=== PATIENT | male | born 1975 | race Caucasian/White ===

== ENCOUNTER 2020-07-15 06:42 | Emergency (ER) | payer BC ==
[~2020-07-15] VITALS: Ht 177.8 cm; Wt 108.9 kg
--- NOTE | 2020-07-15 06:50 | NUR ---
BIBS FOR C/O MID STERNAL CP . NON RADIATING FOR "A LONG TIME". PT DENIED SOB, N/V, H/A OR ANY OTHER SYMPTOMS. PT AMBULATORY TO BED 9, WAS PLACED ON A ALARM INSTALLATION TECHNICIAN. WILL CONT TO MONITOR ,AND F/U W/ MD'S ORDERS.
--- NOTE | 2020-07-15 07:02 | NUR ---
EMT AT BED SIDE FOR EKG
--- NOTE | 2020-07-15 07:05 | NUR ---
X GENIA T BED SIDE
[2020-07-15] MEDS ORDERED: LORAZEPAM 1 MG TABLET PO ONE (07:30)
[2020-07-15] MEDS ORDERED: LORAZEPAM 1 MG TABLET ONE (07:53)
[2020-07-15 08:13] LABS: BASOPHILS % (AUTO) 0.9 % (0.0-2.0); EOSINOPHILS % (AUTO) 0.5 % (0.0-6.0); HEMATOCRIT 48 % (39-51); LYMPHOCYTES # (AUTO) 1.1 /CMM (0.8-4.8); LYMPHOCYTES % (AUTO) 20.7 % (20.0-44.0); MEAN CORPUSCULAR HGB CONC 33 g/dl (31.0-36.0); MEAN CORPUSCULAR VOLUME 85 fL (80-96); MONOCYTES # (AUTO) 0.5 /CMM (0.1-1.30); NEUTROPHILS # (AUTO) 3.6 /CMM (1.8-8.9); NEUTROPHILS % (AUTO) 67.9 % (43.0-81.0); PLATELET COUNT (AUTO) 184 /CMM (150-450); RED BLOOD CELL COUNT(AUTO) 5.58 MIL/uL (4.5-6.0); WHITE BLOOD COUNT (AUTO) 5.4 K/uL (4.3-11.0)
[2020-07-15 08:16] LABS: CALCIUM, SERUM 8.9 mg/dL (8.5-10.1); CARBON DIOXIDE 24 mmol/L (21-32); CHLORIDE 103 mmol/L (98-107); CREATININE 1.1 mg/dL (0.6-1.3); GLUCOSE 106 mg/dL (74-106); POTASSIUM 3.8 mmol/L (3.5-5.1); SODIUM SERUM 135 mmol/L (136-145); UREA NITROGEN, BLOOD 12 mg/dL (7-18)
[2020-07-15 08:34] LABS: ALANINE AMINOTRANSFERASE 20 U/L (12-78); ALBUMIN 3.7 g/dL (3.4-5.0); ALKALINE PHOSPHATASE 72 U/L (46-116); ASPARTATE AMINOTRANSFERASE 16 U/L (15-37); B-TYPE NATRIURETIC PEPTIDE 25 PG/ML (0-125); BILIRUBIN,DIRECT 0.1 mg/dL (0.0-0.2); BILIRUBIN,TOTAL 0.4 mg/dL (0.2-1.0); TOTAL PROTEIN, SERUM 7.5 g/dL (6.4-8.2)
--- NOTE | 2020-07-15 09:09 | NUR ---
DC home instruction given agrees to see PMD in 2 days verbalized understanding .
--- NOTE | 2020-07-15 09:09 | NUR ---
Patient discharged to home in stable condition. Written and verbal after care instructions given. Patient verbalizes understanding of instruction.
[2020-07-15 09:10] VITALS: BP 156/89
== END 2020-07-15 09:11 | disposition home or self-care (01) ==
LOC: ER 06:46
DX: R07.89 Other chest pain (principal)
CPT/HCPCS: 36415; 71045-TC; 80048-TC; 80076-TC; 83880; 84484-TC; 85025-TC